=== PATIENT | male | born 1955 | race Caucasian/White ===

== ENCOUNTER 2016-10-16 09:33 | Emergency (ER) | payer OTHER, BC ==
[~2016-10-16] VITALS: Ht 172.7 cm; Wt 100.2 kg
[2016-10-16 09:52] VITALS: BP 153/67
== END 2016-10-16 12:17 | disposition home or self-care (01) ==
LOC: EME 09:33
PROC: 0HQ1XZZ Repair Face Skin, External Approach (ICD-10-PCS; principal; 2016-10-16)
DX: S01.112A Laceration without foreign body of left eyelid and periocular area, initial encounter (principal); S50.811A Abrasion of right forearm, initial encounter; W17.81XA Fall down embankment (hill), initial encounter; Y99.0 Civilian activity done for income or pay; E11.9 Type 2 diabetes mellitus without complications; Z79.84 Long term (current) use of oral hypoglycemic drugs; Z79.82 Long term (current) use of aspirin
CPT/HCPCS: 99281; 99283